=== PATIENT | female | born 1995 | race American Indian/Alaskan Native ===

== ENCOUNTER 2021-04-16 21:25 | Emergency (ER) | payer SELFPAY | END 2021-04-16 22:30 | disposition left against medical advice (07) | LOC: ED 21:25 | DX: J02.9 Acute pharyngitis, unspecified (principal); Z53.21 Procedure and treatment not carried out due to patient leaving prior to being seen by health care provider ==

== ENCOUNTER 2021-04-17 16:48 | Emergency (ER) | payer SELFPAY ==
[2021-04-17 18:42] VITALS: BP 115/64
--- NOTE | 2021-04-17 20:12 | Emergency Department Report ---
- General Chief Complaint: Dyspnea/Respdistress Stated Complaint: COUGH,BODY ACHES Time Seen by Provider: 04/17/21 19:50 Source: patient Mode of arrival: Ambulatory Limitations: No Limitations - History of Present Illness Initial Comments: 25-year-old -[place]ian female presents to the emergency room for cough body aches sneezing and headache since . Patient has not been vaccinated and has not had a Covid test. She denies any fever chills no nausea no vomiting no diarrhea no abdominal pain. She reports is been taken [id number] Robitussin. Patient has an allergy to codeine. MD Complaint: cough, nasal congestion Onset/Timin -: days(s) Quality: aching Consistency: constant Improves With: nothing Worsens With: nothing Associated Symptoms: headache, nasal congestion. denies: fever, chills, nausea, vomiting, diarrhea, dysuria Treatments Prior to Arrival: none - Related Data Previous Rx's Medication Instructions Recorded Last Taken Type Butalb/Acetamin/Caff 50-325-40 1 each PO Q4H PRN #20 tablet 04/04/16 Unknown Rx [Fioricet] Allergies Allergy/AdvReac Type Severity Reaction Status Date / Time codeine Allergy Swelling Verified 10/28/14 16:39 latex AdvReac Rash Verified 10/28/14 16:39 ED Review of Systems ROS: Stated complaint: COUGH,BODY ACHES Other details as noted in HPI Comment: All other systems reviewed and negative ED Past Medical Hx - Past Medical History Previous Medical History?: Yes Hx Asthma: Yes (no meds x 1 year) - Social History Smoking Status: Never Smoker Substance Use Type: None - Medications Home Medications: Home Medications Medication Instructions Recorded Confirmed Last Taken Type Butalb/Acetamin/Caff 50-325-40 1 each PO Q4H PRN #20 tablet 04/04/16 Unknown Rx [Fioricet] ED Physical Exam - General Limitations: No Limitations General appearance: alert, in no apparent distress - Head Head exam: Present: atraumatic, normocephalic - Eye Eye exam: Present: normal appearance - ENT ENT exam: Present: normal external ear exam - Neck Neck exam: Present: normal inspection, full ROM - Respiratory Respiratory exam: Present: normal lung sounds bilaterally. Absent: respiratory distress, accessory muscle use - Cardiovascular Cardiovascular Exam: Present: regular rate - GI/Abdominal GI/Abdominal exam: Present: soft, normal bowel sounds - Back Exam Back exam: Present: normal inspection - Neurological Exam Neurological exam: Present: alert, oriented X3, normal gait - Psychiatric Psychiatric exam: Present: normal affect, normal mood - Skin Skin exam: Present: warm, dry, intact, normal color. Absent: rash ED Course Vital Signs 04/17/21 18:39 Temperature 98.7 F Pulse Rate 76 Respiratory 20 Rate Blood Pressure 115/64 O2 Sat by Pulse 100 Oximetry ED Medical Decision Making - Medical Decision Making 25-year-old -Lat[place]ian female presents to the emergency room for cough body aches sneezing and headache since . Patient has not been vaccinated and has not had a Covid test. She denies any fever chills no nausea no vomiting no diarrhea no abdominal pain. She reports is been taken [id number] Robitussin. Patient has an allergy to codeine. Recommend patient to get a Covid test quarantine until she gets her test results. Patient take [id number] Tylenol ibuprofen continue Robitussin and Zyrtec. Critical care attestation.: If time is entered above; I have spent that time in minutes in the direct care of this critically ill patient, excluding procedure time. ED Disposition Clinical Impression: Viral syndrome Disposition: HOME / SELF CARE / HOMELESS Is pt being admited?: No Does the pt Need Aspirin: No Condition: Stable Instructions: Viral Respiratory Infection, [id number] Additional Instructions: Your symptoms appear most consistent with a nonspecific viral syndrome. However, given this current pandemic, COVID-19 is in the differential of possibilities. I do recommend outpatient Covid 19 testing. In the meantime, isolate/quarantine yourself and stay away from anyone who is elderly, immunocompromised or chronically ill. You can use ibuprofen every 6-8 hours and Tylenol every 4-8 hours, using the dosing on the back of the bottle, as needed for any fever or body aches. Return to the emergency department with any worsening of your symptoms, development of chest pain or shortness of breath, or with any acute distress. Referrals: [facility] [Provider Group] - 3-5 Days Forms: Work/School Release Form(ED) Time of Disposition: 20:16
== END 2021-04-17 20:23 | disposition home or self-care (01) ==
LOC: ED 16:48
DX: B34.9 Viral infection, unspecified (principal); Z88.5 Allergy status to narcotic agent; Z91.040 Latex allergy status
CPT/HCPCS: 99281

== ENCOUNTER 2021-11-21 01:21 | Emergency (ER) | payer SELFPAY ==
[2021-11-21 01:31] VITALS: BP 123/73
[2021-11-21] MEDS ORDERED: KETOROLAC 10 MG TAB PO ONE (07:55)
[2021-11-21] MEDS ORDERED: METOCLOPRAMIDE 10 MG TAB PO ONE (07:55)
[2021-11-21] MEDS ORDERED: diphenhydrAMINE 25 MG CAP PO ONE (07:55)
[2021-11-21] MEDS ORDERED: DEXAMETHASONE 4 MG TAB PO ONE (07:55)
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
== END 2021-11-21 09:18 | disposition home or self-care (01) ==
LOC: ED 01:21
DX: R51.9 Headache, unspecified (principal); M54.9 Dorsalgia, unspecified; Z88.5 Allergy status to narcotic agent; Z91.040 Latex allergy status
CPT/HCPCS: 99282; J8540